=== PATIENT | male | born 1990 | race African-American/Black ===

== ENCOUNTER 2019-02-10 06:55 | Emergency (ER) | payer OTHER ==
[~2019-02-10] VITALS: Ht 177.8 cm; Wt 84.4 kg
[2019-02-10] MEDS ORDERED: ACET-683 PO (07:05)
[2019-02-10] MEDS ORDERED: PROAAER10 INH (07:07)
[2019-02-10] MEDS ORDERED: ACETAMINOPHEN TAB 650MG DOSE (2X325MG) PO ONE (08:00)
--- NOTE | 2019-02-10 08:39 | REP ---
PA and lateral chest: There are no comparisons. There is an infiltrate in the medial segment right middle lobe. Lung deluna otherwise clear. Cardiac size is normal. The [place], mediastinum, skeletal structures are unremarkable. Impression: Right middle lobe infiltrate. Electronically Signed by Michele Jones MD 02/10/2019 08:31 A
[2019-02-10] MEDS ORDERED: ZITHTAB PO (08:52)
[2019-02-10] MEDS ORDERED: CEFU50TA PO (08:52)
[2019-02-10] MEDS ORDERED: BENZ200C70 PO (08:52)
[2019-02-10 09:03] VITALS: BP 119/63
--- NOTE | 2019-02-10 20:41 | ECGEPIP ---
[facility] - ED Test Date: 2019-02-10 Pat Name: NIECY CHOI Department: Room: - Gender: Male Cisco Administrator: [place] : [id number] Requested By: LEEANNE STONER PA-C. Order Number: [id number] Reading MD: Sabi Peralta Measurements Intervals [place] Rate: 107 P: 66 [place]: 96 QRS: 82 QRSD: 89 T: 43 QT: 313 QTc: 418 Interpretive Statements SINUS TACHYCARDIA WITH SHORT [place] INTERVAL POSSIBLE LEFT ATRIAL ENLARGEMENT ST ELEVATION, PROBABLY EARLY REPOLARIZATION NONSPECIFIC T-WAVE ABNORMALITY ABNORMAL RHYTHM ECG NO PRIOR Electronically Signed on 02-10-2019 20:41:32 EDT by Sabi Peralta
== END 2019-02-10 09:05 | disposition home or self-care (01) ==
LOC: M ED 06:55
DX: J18.9 Pneumonia, unspecified organism (principal); Z79.899 Other long term (current) drug therapy; Z91.013 Allergy to seafood; J45.909 Unspecified asthma, uncomplicated; R00.0 Tachycardia, unspecified

== ENCOUNTER → 2020-03-27 | Outpatient (CLI) | payer OTHER ==
[~2020-03-27] MED LIST: ACET-683 PO; BENZ200C70 PO; CEFU50TA PO; METHACHOLINE KIT (J7674) INH ONE; PROAAER10 INH; ZITHTAB PO
--- NOTE | 2020-03-27 08:49 | PFTRPT ---
Height: 70.00 Inches Weight: 210.00 Lbs BSA: 2.13 Diagnosis: ASTHMA DATE: 03/27/2020 ORDERED BY: Alma Augustine QUALITY: Study of excellent technical quality. PROCEDURE: Under protocol, methacholine was administered. Some difficulty with the required maneuvers is noted. At a dose of 0.25 mg or 1.375 CDUs, a 28% decline of the FEV1 was noted. PC of 0.04 is significant. Flow rates did return to baseline post-bronchodilator administration. IMPRESSION: Positive methacholine challenge study. MTDD
== END ==
LOC: M CARPUL 03-08 15:10
PROVIDERS: ATTEND Physician Assistant
DX: J45.909 Unspecified asthma, uncomplicated (principal)
CPT/HCPCS: 94070; J7674